=== PATIENT | female | born 1960 | race Caucasian/White ===

== ENCOUNTER 2021-08-15 11:51 | Emergency (ER) | payer MEDICARE, OTHER ==
[~2021-08-15] VITALS: Ht 167.6 cm; Wt 81.6 kg
[2021-08-15 12:20] LABS: BASOPHILS % (AUTO) 0.9 % (0.0-5.0); EOSINOPHILS % (AUTO) 2.4 % (0.0-8.0); HEMATOCRIT 41.2 % (36-48); MEAN CORPUSCULAR HEMOGLOBIN 28.2 pg (27.0-33.0); MEAN CORPUSCULAR HGB CONC 32.8 g/dL (32.0-36.0); MONOCYTES % (AUTO) 6.8 % (3.0-13.0); NEUTROPHILS % (AUTO) 61.8 % (40.0-77.0); PLATELET COUNT (AUTO) 230 K/uL (130-400); RED BLOOD CELL COUNT(AUTO) 4.79 MIL/uL (4.00-5.50); RED CELL DISTRIBUTION WIDTH 13.1 % (11.0-15.5)
[2021-08-15 12:25] LABS: INR 0.96 (0.85-1.15); PROTHROMBIN TIME 10.5 SEC (9.6-11.6)
[2021-08-15 12:26] LABS: CREATININE 0.7 mg/dL (0.5-1.5); POTASSIUM 4.1 mmol/L (3.5-5.1)
[2021-08-15 12:30] LABS: ALBUMIN 3.5 g/dL (3.5-5.0); BILIRUBIN,TOTAL 0.5 mg/dL (0.2-1.0)
[2021-08-15] MEDS ORDERED: 0.9%NACL 1000ML 1,000 ML IV ONE (12:30)
[2021-08-15] MEDS ORDERED: ONDANSETRON 4MG INJ IVP ONE (13:00)
[2021-08-15] MEDS ORDERED: ORPHENADRINE CITRATE 30 MG/ML ML IV ONE (13:30)
[2021-08-15] MEDS ORDERED: KETOROLAC 15MG/ML VIAL (15MG/ML) IV ONE (13:30)
[2021-08-15 13:44] LABS: B-TYPE NATRIURETIC PEPTIDE 43 pg/mL (0-100)
[2021-08-15 14:17] VITALS: BP 115/54
== END 2021-08-15 14:57 | disposition home or self-care (01) ==
LOC: EDH 11:51
DX: R07.89 Other chest pain (principal); G44.209 Tension-type headache, unspecified, not intractable; F41.9 Anxiety disorder, unspecified; F32.A Depression, unspecified; E78.00 Pure hypercholesterolemia, unspecified; Z98.890 Other specified postprocedural states
CPT/HCPCS: 36415; 71045; 80053; 83690; 83880; 84484; 85025; 85610; 93005 ×2; 96361; 96374; 96375; 99285; J1885; J2360; J2405; J7030

== ENCOUNTER → 2024-10-22 | Outpatient (CLI) | payer OTHER ==
--- NOTE | 2024-10-22 14:38 | HMCIMG ---
Nuclear medicine gastric emptying study HISTORY: Early Satiety. COMPARISON: No relevant prior studies. RADIOPHARMACEUTICAL: 1 mCi of technetium 99 sulfur colloid TECHNIQUE: Dynamic computer imaging and serial static images were performed over the anterior abdomen for 1 hour. Static images obtained up to 2 hours. By region of interest computer analysis, a time/activity curve for the stomach was generated and a T 1/2 for clearance of activity was determined. FINDINGS: Review of dynamic images does not demonstrate any gastroesophageal reflux. The normal pattern of gastric emptying is appreciated. T 1/2: 81 minutes (normal 55-90 minutes). Percent empty at 1 hour: 56 percent (less than 40 percent at one hour is consistent with delayed emptying). IMPRESSION: Normal gastric emptying. No evidence of gastric outlet obstruction. No evidence of gastric emptying delay or gastroparesis.
== END | disposition home or self-care (01) ==
LOC: RAH 10:48
PROVIDERS: ATTEND Internal Medicine Gastroenterology
DX: R68.81 Early satiety (principal)
CPT/HCPCS: 78264; A9541

== ENCOUNTER 2024-12-01 01:10 | Emergency (ER) | payer OTHER ==
[~2024-12-01] VITALS: Ht 167.6 cm; Wt 69.4 kg
[2024-12-01 01:32] LABS: IMMATURE GRANULOCYTE ABSOLUTE 0.03 K/uL (0-1); NUCLEATED RED BLOOD CELLS 0.0 % (0.0-0.19); PLATELET COUNT (AUTO) 435 K/uL (130-400); RED BLOOD CELL COUNT(AUTO) 4.60 MIL/uL (4.00-5.50); RED CELL DISTRIBUTION WIDTH 13.1 % (11.0-15.5); WHITE BLOOD COUNT (AUTO) 10.5 K/uL (4.8-10.8)
--- NOTE | 2024-12-01 01:33 | EKG ---
[facility] Test Date: 2024-12-01 Test Time: 01:28:54 Pat Name: TREVOR LEES Department: ED Room: Gender: F [employer]: [id number] : 1960 Requested By: NHAN DESIR Order Number: [id number] Reading MD: Sang Ortiz Measurements Intervals [place] Rate: 70 P: 85 [place]: 146 QRS: 46 QRSD: 80 T: 31 QT: 393 QTc: 426 Interpretive Statements Sinus rhythm Probable left atrial enlargement Compared to ECG 08/15/2021 11:50:36 ST (T wave) deviation no longer present Electronically Signed On 12-01-2024 10:33:56 CDT by Sang Ortiz Please click the below link to view image of tracing.
[2024-12-01 01:43] LABS: CREATININE 0.8 mg/dL (0.5-1.0); GLOMERULAR FILTR. RATE CALC 81.0 mL/min (>90); GLUCOSE,RANDOM 157.0 mg/dL (70-105); SODIUM SERUM 140.0 mmol/L (136-145); UREA NITROGEN, BLOOD 17.0 mg/dL (7-18)
[2024-12-01 01:44] LABS: INR 1.09 (0.85-1.15)
[2024-12-01 01:48] LABS: ASPARTATE AMINOTRANSFERASE 112.0 U/L (10-37); TOTAL PROTEIN, SERUM 7.7 g/dL (6.0-8.3)
--- NOTE | 2024-12-01 03:11 | HMCIMG ---
EXAM: CR Chest, 1 view. CLINICAL HISTORY: Epigastric pain. COMPARISON: None. FINDINGS: The lungs show no infiltrate or other acute findings. No pleural effusion or pneumothorax. The cardiomediastinal silhouette is within normal limits. No acute osseous abnormality. IMPRESSION: No acute cardiopulmonary pathology is evident. /[place]
[2024-12-01] MEDS: FAMOTIDINE 20MG VIAL IV ONE (03:12)
--- NOTE | 2024-12-01 03:21 | ERN ---
General Chief Complaint: Abdominal Pain Stated Complaint: EPIGASTRIC PAIN Time Seen by MD: 01:14 Time Seen by Midlevel: 01:14 Source: patient History of Present Illness Initial Comments The patient was a 64-year-old female with a past medical history of Muñoz's esophagus presenting to the emergency department with midepigastric abdominal pain that radiates up to her chest. Patient states her symptoms do not feel similar to her previous history of gastritis and Muñoz's esophagus. She became concerned when the pain radiates up to her chest so she decided to report to the ER for further evaluation. Allergies: Coded Allergies: No Known Drug Allergies (Unverified Allergy, Unknown, 08/15/21) Past Medical History Past Medical History: Anxiety, Depression, High Cholesterol Medical History Other: PREDIABETIC Past Surgical History: Hysterectomy Surgical History Other: EYE LIDS/ TUMMY TUCK/ L4 L5 FUSION ROS Dictation CONSTITUTIONAL: Negative except for HPI HEAD/FACE: Negative except for HPI EENT: Negative except for HPI RESPIRATORY: Negative except for HPI GASTROINTESTINAL/ABDOMINAL: Negative except for HPI GENITOURINARY: Negative except for HPI MUSCULOSKELETAL: Negative except for HPI INTEGUMENTARY: Negative except for HPI NEUROLOGICAL/PSYCH: Negative except for HPI HEMATOLOGIC/LYMPHATIC: Negative except for HPI All Systems Negative, Except as noted above. 13 point review of systems assessed and all negative except for above. Physical Exam Physical Exam Dictation Vital Signs reviewed General Appearance: Alert, oriented x 3, no acute distress, well developed, nourished. Head and Face: non-traumatic. Eyes: PERRL, pink conjunctivas, eyelid no trauma, anterior chamber with arcus senilis. Ears: Pinnas intact and no signs of trauma or erythema ear canals clear and no discharge TM no erythema Nose: No discharge, no bleeding. Oropharynx: Mouth normal, tongue pink, pharynx clear,no erythema, tonsils no exudates, no abscesses noted, mucous membrane moist Neck: Supple, non-tender, no thyromegaly, no masses, no JVD, no bruits Breast:Deferred Chest:No tenderness, no crepitus, no paradoxical movement, no retractions Lungs:Clear, well-ventilated, symmetric, no rales, no wheezing, no rhonchi, no stridor, good breath sounds bilaterally Heart: Regular rate, regular rhythm, no murmur, no gallops Vascular: no peripheral edema, Abdomen: Soft, positive bowel sounds, nondistended, no guarding, nontender, no rebound, no masses no hepatomegaly, no splenomegaly, no Mccollum's sign, no hernias. Rectal: Deferred Genital: Deferred Neurological: Normal speech, motor function intact, sensory function intact Musculoskeletal: Neck nontender, full range of motion, back nontender, full range of motion, Extremities: nontender, full range of motion Skin: Color pink, dry, no turgor, no rash, no lacerations, no abrasions, no c ontusions. Lymphatic: Deferred Results Laboratory and Microbiology Lab and Micro Result Laboratory Tests Test 12/01/24 01:19 12/01/24 03:05 White Blood Count 10.5 K/uL (4.8-10.8) Red Blood Count 4.60 MIL/uL (4.00-5.50) Hemoglobin 12.7 g/dL (12.0-16.0) Hematocrit 37.6 % (36-48) Mean Corpuscular Volume 81.7 fL (79-99) Mean Corpuscular Hemoglobin 27.6 pg (27.0-33.0) Mean Corpuscular Hemoglobin Concent 33.8 g/dL (32.0-36.0) Red Cell Distribution Width 13.1 % (11.0-15.5) Platelet Count 435 K/uL (130-400) H Mean Platelet Volume 9.7 fL (7.5-10.5) Immature Granulocyte % (Auto) 0.3 % (0-1) Neutrophils (%) (Auto) 74.2 % (40.0-77.0) Lymphocytes (%) (Auto) 17.6 % (21.0-51.0) L Monocytes (%) (Auto) 6.5 % (3.0-13.0) Eosinophils (%) (Auto) 0.8 % (0.0-8.0) Basophils (%) (Auto) 0.6 % (0.0-5.0) Neutrophils # (Auto) 7.8 K/uL (1.8-7.7) H Lymphocytes # (Auto) 1.9 K/uL (1.0-4.8) Monocytes # (Auto) 0.7 K/uL (0.1-1.0) Eosinophils # (Auto) 0.08 K/uL (0.00-0.70) Basophils # (Auto) 0.06 K/uL (0.00-0.20) Absolute Immature Granulocyte (auto 0.03 K/uL (0-1) Nucleated Red Blood Cells 0.0 % (0.0-0.19) Prothrombin Time 11.5 SEC (9.6-11.6) Prothromb Time International Ratio 1.09 (0.85-1.15) Activated Partial Thromboplast Time 31.0 SEC (26.3-35.5) Sodium Level 140 mmol/L (136-145) Potassium Level 3.2 mmol/L (3.5-5.1) L Chloride Level 101 mmol/L (101-111) Carbon Dioxide Level 25 mmol/L (21-32) Blood Urea Nitrogen 17 mg/dL (7-18) Creatinine 0.8 mg/dL (0.5-1.0) Glomerular Filtration Rate Calc 81 mL/min (>90) Random Glucose 157 mg/dL (70-105) H Total Calcium 9.6 mg/dL (8.5-10.1) Total Bilirubin 1.0 mg/dL (0.2-1.0) Direct Bilirubin 0.5 mg/dL (0.0-0.3) H Aspartate Amino Transf (AST/SGOT) 112 U/L (10-37) H Alanine Aminotransferase (ALT/SGPT) 45 U/L (12-78) Alkaline Phosphatase 168 U/L (50-136) H Troponin I High Sensitivity < 4 ng/L (4-50) L 4 ng/L (4-50) Total Protein 7.7 g/dL (6.0-8.3) Albumin 3.1 g/dL (3.5-5.0) L Lipase 107 U/L (16-77) H Labs Reviewed?: Yes MDM 64-year-old female presenting to the emergency department for evaluation of midepigastric abdominal pain that radiates up to the chest. Patient does have a history parents esophagus. On arrival with the patient is in no acute distress. Initial vital signs are stable. A cardiac workup was initiated. EKG shows normal sinus rhythm with no evidence of ST elevations or bundle branch blocks. Initial troponin was negative but the patient continues to report chest discomfort/epigastric discomfort. A repeat troponin was ordered and the patient will be given a GI cocktail along with IV Zofran. The patient care was transitioned to Dr. Desir Second troponin was negative and the GI cocktail completely cured the patient of her chest pain. I discussed with her it maybe a hiatal hernia and she said that she does not indeed have one but it is small. Neither case she is feeling better and would like to go home. ED Course Orders Procedure Category Date Status Time Cbc With Differential LAB 12/01/24 Complete 01:16 Basic Metabolic Panel LAB 12/01/24 Complete 01:16 Troponin I High LAB 12/01/24 Complete Sensitivity 01:16 12 Lead Ekg Tracing- EKG 12/01/24 Complete Technical 01:16 Hepatic Function Panel LAB 12/01/24 Complete 01:16 Chest 1vw RAD 12/01/24 Resulted 01:16 Pt And Ptt LAB 12/01/24 Complete 01:18 Lipase LAB 12/01/24 Complete 01:31 Troponin I High LAB 12/01/24 Complete Sensitivity 02:50 Morphine 2mg Syg PHA 12/01/24 Complete (Morphine 2mg Syg) 03:00 Ondansetron 4mg Inj PHA 12/01/24 Complete (Zofran 4mg Inj) 03:00 Famotidine 20mg Vial PHA 12/01/24 Complete (Pepcid 20mg Vial) 03:00 Lidocaine Hcl 2% PHA 12/01/24 Complete Viscous (Lidocaine Hcl 03:30 Mag/Alum/Simeth 30ml PHA 12/01/24 Complete (Maalox Plus 30ml) 03:30 Current Medications Medications (Trade) Dose Ordered Sig/Cisco Route PRN Reason Start Time Stop Time Status Last Admin Dose Admin Al Hydroxide/Mg Hydroxide (MAALox PLUS 30ML) 30 ml ONCE ONCE PO 12/01/24 03:30 12/01/24 03:31 DC 12/01/24 03:27 Famotidine (Pepcid 20mg Vial) 20 mg ONCE ONCE IV 12/01/24 03:00 12/01/24 03:04 DC 12/01/24 03:12 Lidocaine HCl (Lidocaine HCl 2% Viscous) 10 ml ONCE ONCE PO 12/01/24 03:30 12/01/24 03:31 DC 12/01/24 03:27 Morphine Sulfate (morPHINE 2MG SYG) 2 mg ONCE ONCE IVP 12/01/24 03:00 12/01/24 03:04 DC 12/01/24 03:13 Ondansetron HCl (zoFRAN 4MG INJ) 4 mg ONCE ONCE IVP 12/01/24 03:00 12/01/24 03:04 DC 12/01/24 03:13 Vital Signs Date Time Temp Pulse Resp B/P (MAP) Pulse Ox O2 Delivery O2 Flow Rate FiO2 12/01/24 01:21 76 22 142/51 100 Room Air* 0 21 12/01/24 01:11 97.9 78 26 147/57 100 Room Air 0 DX & DISP Disposition: Discharge Departure Impression: Primary Impression: Chest pain Additional Impression: Hiatal hernia Condition: Stable Additional Instructions: Please follow-up with your primary care physician regarding these symptoms sometime in the next week if they do not get better. Most likely it was a GI problem either the hiatal hernia or GERD or acid reflux esophageal spasm. In either case we have ruled out a cardiac cause. Referrals: KHANH SIMMS MD (PCP) CLAY RIBERA Dec 01, 2024 03:21 NHAN DESIR MD Dec 01, 2024 03:44
[2024-12-01] MEDS: MAG/ALUM/SIMETH 30 ML UDCUP PO ONE (03:27)
[2024-12-01] MEDS: LIDOCAINE HCL 2% VISCOUS 15 ML UDCUP PO ONE (03:27)
[2024-12-01 03:45] VITALS: BP 145/60; PULSE 83; RESP 16; TEMP 98.4; O2SAT 98
== END 2024-12-01 04:03 | disposition home or self-care (01) ==
LOC: EDH 01:10
DX: K44.9 Diaphragmatic hernia without obstruction or gangrene (principal); R07.89 Other chest pain; E78.00 Pure hypercholesterolemia, unspecified; F41.9 Anxiety disorder, unspecified; F32.A Depression, unspecified; Z90.710 Acquired absence of both cervix and uterus
CPT/HCPCS: 99285; 96374; 96375; 71045; 80076; 84484 ×2; 80048; 83690; 85025; 85610; 85730; 36415; 93005; J3490; J2270; J2405

== ENCOUNTER → 2024-12-26 | Outpatient (CLI) | payer OTHER ==
--- NOTE | 2025-01-06 11:03 | HMCIMG ---
CLINICAL INDICATION: Unspecified menopausal and. Menopausal disorder COMPARISON: None provided TECHNIQUE: Bone densitometry is performed of the lumbar spine and left hip. FINDINGS: Total BMD of lumbar spine is 0.967 g/cm2 with a T-score of -0.5 and Z-score is 1.3. Total BMD of left hip is 0.712 g/cm2 with a T-score of -1.9 and Z-score is -0.6. FRAX SCORE: The 10 year fracture risk for a major osteoporotic fracture and hip fracture 8.5% IMPRESSION: 1. Normal lumbar spine 2. Osteopenia left hip 3. I would recommend follow-up in 13 months World Health Organization criteria for BMD interpretation classify patients as Normal (T-score at or above -1.0), Osteopenic (T-score between -1.0 and -2.5), or Osteoporotic (T-score at or below -2.5). FRAX SCORE: A. All treatment decisions require clinical judgment and consideration of individual patient factors, including patient preferences, comorbidities, previous drug use, risk factors not captured in the FRAX model (e.g., frailty, falls, vitamin D deficiency, increased bone turnover, interval significant decline in bone density) and possible [id number]-estimation of fracture risk by FRAX. B. In addition, the NOF Guide recommends that FDA-approved medical therapies be considered in postmenopausal women and men age greater than or equal to 50 years with a: i. Hip or vertebral (clinical or morphometric) fracture. ii. T-score of less than or equal to -2.5 at the spine or hip. iii. Ten-year fracture probability by FRAX of greater than or equal to 3% for hip fracture of greater than or equal to 20% for major osteoporotic fracture.
== END | disposition home or self-care (01) ==
LOC: RAH 13:22
PROVIDERS: ATTEND Internal Medicine
DX: M85.852 Other specified disorders of bone density and structure, left thigh (principal); N95.9 Unspecified menopausal and perimenopausal disorder
CPT/HCPCS: 77080